=== PATIENT | female | born 1960 | race Caucasian/White ===

== ENCOUNTER 2023-06-28 06:04 | Day surgery (SDC) | payer BC ==
[2023-06-28] VITALS (13 sets, daily range): BP systolic 113–142; BP diastolic 50–76; PULSE 74–103; TEMP 97.6–98.7
[~2023-06-28] VITALS: Ht 157.5 cm; Wt 75.3 kg
[2023-06-28] MEDS ORDERED: NORVASC 5MG5 MG/TAB PO (06:29)
[2023-06-28] MEDS ORDERED: NORVASC2.5 MG PO (06:29)
[2023-06-28] MEDS ORDERED: PRIL40 PO (06:30)
[2023-06-28] MEDS ORDERED: SYNTHROID0.1 MG/TAB PO (06:30)
--- NOTE | 2023-06-28 06:58 | NUR ---
The patient ambulated back to [place] [facility] independently using a steady gait and appeared to tolerate the activity well. Vital signs obtained. Consent signed. 18G IV started in left hand with one stick. Assessment completed. Home medication reconcilled. brought back to be at her bedside. Warm blankets provided. Call light is within reach. The patient denies any further needs at this time.
[2023-06-28] MEDS ORDERED: Vecuronium 10 MG VIAL IV ONE (07:13)
[2023-06-28] MEDS ORDERED: hydrALAZINE 20 MG/ML 1 ML VIAL IV PRN (07:15)
[2023-06-28] MEDS ORDERED: droPERidol 2.5 MG/ML 2 ML VIAL IV PRN (07:15)
[2023-06-28] MEDS ORDERED: fentaNYL 50 MCG/ML 2 ML VIAL IV PRN (07:15)
[2023-06-28] MEDS ORDERED: Meperidine 50 MG/ML 1 ML VIAL IV PRN (07:15)
[2023-06-28] MEDS ORDERED: Ondansetron 4 MG/2 ML VIAL IV PRN (07:15)
[2023-06-28] MEDS ORDERED: HYDROmorphone 2 MG/1 ML VIAL IV PRN (07:15)
[2023-06-28] MEDS ORDERED: Lidocaine PF 2% (20 MG/ML) 5 ML VIAL ONE (07:16)
[2023-06-28] MEDS ORDERED: SUFentanil 50 MCG/1 ML VIAL IV ONE (07:19)
[2023-06-28] MEDS ORDERED: LR 1,000 ML IV SCH (07:30)
[2023-06-28] MEDS ORDERED: dexAMETHasone 10 MG/ML VIAL ONE (08:27)
[2023-06-28] MEDS ORDERED: Ondansetron 4 MG/2 ML VIAL ONE (08:27)
[2023-06-28] MEDS ORDERED: diphenhydrAMINE 50 MG/ML 1 ML VIAL ONE (08:48)
[2023-06-28] MEDS ORDERED: Ketorolac 30 MG/ML VIAL ONE (08:56)
[2023-06-28] MEDS ORDERED: Topical Skin Adhesive 1 EACH (1 ML) TOP ONE (09:13)
[2023-06-28] MEDS ORDERED: LR 1,000 ML IV ONE (09:26)
[2023-06-28] MEDS ORDERED: Ibuprofen 600 MG TAB PO PRN (09:30)
[2023-06-28] MEDS ORDERED: Ondansetron 4 MG/2 ML VIAL IV SCH (09:30)
[2023-06-28] MEDS ORDERED: Acetaminophen 325 MG TAB PO PRN (09:30)
--- NOTE | 2023-06-28 10:30 | NUR ---
pt admitted to room from pacu, at bedside. vss. x5 lap sites are cdi. pt denies pain and nausea. med rec and admission assessment complete. INT to left hand is patent. pt on 2L nasal cannula. scds to ble. tolerating ice chips. oriented pt to room. call light in reach. no needs at this time.
--- NOTE | 2023-06-28 22:25 | NUR ---
Assessment complete. States her pain is well controlled at this time and only really bothers her if she rolls onto her side, rates pain 3/10. Denies any other needs at this time. Call light within reach.
[2023-06-29] VITALS: BP 114/68; PULSE 87; TEMP 97.8
[2023-06-29 01:47] VITALS: BP_SYST 114
[2023-06-29 03:48] VITALS: BP 125/73; PULSE 74; TEMP 97.9
[2023-06-29 05:31] VITALS: BP_SYST 125
[2023-06-29 08:06] VITALS: BP 134/82; PULSE 74; TEMP 97.9
[2023-06-29] MEDS ORDERED: amLODIPine 5 MG TAB PO SCH ×2 (09:00)
[2023-06-29] MEDS ORDERED: OMEGA-3 1000 MG1 CAP PO (09:02)
[2023-06-29] MEDS ORDERED: MAGNESIUM CITR100 MG PO (09:03)
[2023-06-29] MEDS ORDERED: CENTRUM ADULT80 MCG PO (09:03)
[2023-06-29 09:20] VITALS: BP_SYST 134
--- NOTE | 2023-06-29 09:30 | NUR ---
pt a&ox4 resting in bed. vss. meds given and assessment complete. pt denies pain and nausea. pt is tolerating clear liquid diet. scds to ble. x5 lap sites are cdi. INT to left hand is patent. pt denies needs at this time. call light in reach.
[2023-06-29] MEDS ORDERED: NORCO 325 MG-51 TAB PO (10:07)
--- NOTE | 2023-06-29 10:34 | NUR ---
Initial visit attempt; Patient sleeping, Pediatric Neurologist left card offering the availability of [facility] at [facility].
--- NOTE | 2023-06-29 12:00 | NUR ---
INT discontinued. discharge instructions given to pt, all questions answered. escorted pt to personal vehicle by wheelchair.
--- NOTE | 2023-06-29 12:24 | NUR ---
MAGNOLIA Luz identified self as MAGNOLIA Student and completed intake with patient at bedside. Patient lives in [place], [place] with her Paulo ([phone]). Patient sees Dr. Herrera for primary care and obtains medications from [facility] [employer] in [place], [place] with no issues. Patient reports that she is independent with ADLs and usually transports herself to appointments. Patient does not utilize any DME. Patient stated that herself and previously completed various forms but she is unsure if she currently has a completed DPOA-HC. MAGNOLIA Luz offered to complete one while she is here, but patient denied wanting to do so. Patient stated that she plans to return home at time of discharge and will contact her for transportation. Discharge Plan: Home
== END 2023-06-29 12:00 | disposition home or self-care (01) ==
LOC: SDCO 06:04 → SURG 10:34 → SDCO 06-29 12:00
DX: K44.9 Diaphragmatic hernia without obstruction or gangrene (principal); K21.00 Gastro-esophageal reflux disease with esophagitis, without bleeding; K22.2 Esophageal obstruction; I10 Essential (primary) hypertension; Z87.891 Personal history of nicotine dependence; Z79.899 Other long term (current) drug therapy
CPT/HCPCS: OP; J0690; J1100; J1200; J1885; J2405; J2704; J2765; J7120